=== PATIENT | female | born 2000 | race Caucasian/White ===

== ENCOUNTER 2021-04-12 15:09 | Emergency (ER) | payer BC ==
[~2021-04-12] VITALS: Ht 160 cm; Wt 54.5 kg
[2021-04-12 15:39] VITALS: TEMP 98.8
[2021-04-12 17:37] LABS: BASO % 0.2 % (0.0-2.0); EOS # 0.1 (0.0-0.7); EOS % 1.4 % (0-4.0); GRAN # 2.3 (1.4-6.5); GRAN % 53.6 % (42.2-75.2); HEMATOCRIT 41.5 % (35.0-45.0); HEMOGLOBIN 14.2 g/dl (12.0-15.0); LYMPH # 1.6 (1.2-3.4); LYMPH % 35.9 % (20.0-51.0); MEAN CELL VOLUME 82 fl (80.0-95.0); MEAN CORPUSCULAR HEMOGLOBIN 28 pg (26.0-32.0); MEAN CORPUSCULAR HGB CONC 34 g/dl (33.0-37.0); MEAN PLATELET VOLUME 11.4 fl (7.4-10.4); MONO # 0.4 (0.1-0.6); MONO % 8.7 % (1.7-9.3); PLATELET COUNT 149 K/mm3 (130-400); RED BLOOD COUNT 5.07 M/mm3 (4.10-5.30); REDCELL DISTRIBUTION WIDTH-CV 12.5 % (11.5-14.5)
[2021-04-12 17:54] LABS: ALANINE AMINOTRANSFERASE 84 U/L (4-34); ALBUMIN 4.5 gm/dL (3.5-5.0); ALKALINE PHOSPHATASE 43 U/L (50-136); ANION GAP 9 mmol/L (7-16); AST,SGOT 60 U/L (15-37); BILIRUBIN,TOTAL 1.3 mg/dL (0.0-1.0); BLOOD UREA NITROGEN 13 mg/dL (7-17); CALCIUM 9.4 mg/dL (8.4-10.2); CARBON DIOXIDE 25 mmol/L (22-30); CHLORIDE 105 mmol/L (98-107); CREATININE, serum 0.67 (0.52-1.25); GLUCOSE 92 mg/dL (74-106); POTASSIUM 3.9 mmol/L (3.4-5.0); SODIUM 139 mmol/L (137-145); TOTAL PROTEIN 8.4 gm/dL (6.4-8.2)
[2021-04-12 18:10] LABS: TROPONIN-I < 0.012 ng/mL (0.000-0.035)
[2021-04-12 19:40] VITALS: BP 132/70; PULSE 64
== END 2021-04-12 19:40 | disposition home or self-care (01) ==
LOC: COL.ER 15:09
PROVIDERS: Nurse Practitioner
DX: U07.1 COVID-19 (principal); J45.909 Unspecified asthma, uncomplicated
CPT/HCPCS: J1885; J7030